=== PATIENT | female | born 2000 | race Caucasian/White ===

== ENCOUNTER 2021-03-21 18:24 | Emergency (ER) | payer OTHER ==
[~2021-03-21] VITALS: Ht 165.1 cm; Wt 61.2 kg
[2021-03-21] MEDS ORDERED: PENICILLIN VK250 MG PO (20:01)
[2021-03-21] MEDS ORDERED: TRAMADOL 50 MG50 MG PO (20:01)
[2021-03-21 20:11] VITALS: BP 105/50
== END 2021-03-21 20:11 | disposition home or self-care (01) ==
LOC: M.ERS 18:24
DX: K08.89 Other specified disorders of teeth and supporting structures (principal); Z91.018 Allergy to other foods